=== PATIENT | female | born 1960 | race Caucasian/White ===

== ENCOUNTER 2019-09-19 12:41 | Emergency (ER) | payer BC, SELFPAY ==
[2019-09-19 12:59] VITALS: BP 172/81; PULSE 98; RESP 20; TEMP 37.8; O2SAT 98
--- NOTE | 2019-09-19 13:06 | ED.URI ---
HPI - URI/Sore Throat General Chief Complaint: Upper Respiratory Infection Stated Complaint: CLEMONS/fever Time Seen by Provider: 09/19/19 13:00 Source: patient Mode of arrival: ambulatory Limitations: no limitations History of Present Illness HPI Narrative: Chitra Velazco is a 59 yo female with a PMH of GERD who comes to urgent care with headache and upper respiratory symptoms. Patient started developed symptoms yesterday, she states she did not have a flu vaccine because she is afraid of it; when questioned about this believe she said she knows a lot of people get sick even with the flu vaccine. Related Data Home Medications Medication Instructions Recorded Confirmed anastrozole 1 mg DAILY 09/19/19 09/19/19 latanoprost 1 drp HS 09/19/19 09/19/19 omeprazole 20 mg DAILY 09/19/19 09/19/19 Allergies Allergy/AdvReac Type Severity Reaction Status Date / Time SHELLFISH Allergy Unknown Uncoded 06/30/18 10:09 Review of Systems Review of Systems: Narrative: CONSTITUTIONAL: Denies fever, chills, sweats. EYES: Denies visual changes, redness, discharge. ENT: has rhinorrhea, congestion, sore throat, no otalgia. Has headache CARDIOVASCULAR: Denies chest pain, palpitations, edema. RESPIRATORY: Denies dyspnea, wheezing, cough GASTROINTESTINAL: Denies abdominal pain, nausea, vomiting, diarrhea. GENITOURINARY: Denies dysuria, hematuria, abnormal discharge SKIN: Denies rash or itching. MUSCULOSKELETAL: Denies acute back pain, joint pain, or myalgia. NEUROLOGIC: Denies numbness, or focal weakness. PSYCHIATRIC: Denies anxiety or depression. PMFSH Family History Family History Other Heart disease Social History Social History Smoking status: Never smoker Gender identity (if verbalized by the patient): Female Comments At time of signature, I agree with nursing past medical, surgical, social and family history. There is no relevant family history pertinent to the presenting complaint. Exam Narrative: Exam Narrative: GENERAL: This is a well-nourished, well-developed patient, in moderate distress. Has intermittent fever and has headache she rates 4/ 10 HEAD: normocephalic, atraumatic. EYES: Sclera clear/white. Vision is grossly intact. EARS: External ears normal, auditory canals clear and without drainage, TMs normal without perforation. Hearing grossly intact. NOSE: External nose normal with nasal discharge, nares with redness, has rhinorrhea. THROAT: Mucous membranes moist, posterior pharynx erythema NECK: Neck supple, non-tender CARDIOVASCULAR: Regular rate and rhythm without murmurs, gallops, or rubs. RESPIRATORY: Clear to auscultation. Breath sounds equal bilaterally. No wheezes, rales, or rhonchi. GASTROINTESTINAL: Abdomen soft, non-tender, SKIN: warm, intact with no suspicious lesions or rash, good texture and turgor. NEURO: awake, alert, and oriented to person, place and time. There were no obvious focal neurologic abnormalities. Steady gait EXTREMITIES: Normal range of motion. No edema. BACK: Nontender without deformity or crepitance. . Course Course Emergency Course: Discussed pain control with ibuprofen, call in a cough medicine the MucinexMimaofjayden Vital Signs Vital signs: Vital Signs Temperature 100.0 F H 09/19/19 12:59 Pulse Rate 98 09/19/19 12:59 Respiratory Rate 09/19/19 12:59 Blood Pressure 172/81 H 09/19/19 12:59 Pulse Oximetry 98 09/19/19 12:59 Temperature 100.0 F H 09/19/19 12:59 Pulse Rate 98 09/19/19 12:59 Respiratory Rate 09/19/19 12:59 Blood Pressure 172/81 H 09/19/19 12:59 Pulse Oximetry 98 09/19/19 12:59 MDM - URI/Sore Throat Differential Diagnosis Differential diagnosis: Likely upper respiratory infection, viral infection and influenza Lab Data Labs: Influenza A Screen Positive Reference Range: Negative Influenza
== END 2019-09-19 13:21 | disposition home or self-care (01) ==
PROVIDERS: Emergency Provider Nurse Practitioner
DX: J10.1 Influenza due to other identified influenza virus with other respiratory manifestations (principal)
CPT/HCPCS: 87804; 99213; G0463

== ENCOUNTER 2021-08-16 11:35 | Emergency (ER) | payer BC, SELFPAY ==
[2021-08-16 12:00] VITALS: BP 175/98; PULSE 133; RESP 14; TEMP 36.6; O2SAT 97
[2021-08-16 14:04] VITALS: BP 156/87; PULSE 112; TEMP 37.3; O2SAT 98
--- NOTE | 2021-08-16 17:05 | PC.NURSE ---
pt. called 2x for VS. no answer
== END 2021-08-17 02:59 | disposition left against medical advice (07) ==
DX: Z53.21 Procedure and treatment not carried out due to patient leaving prior to being seen by health care provider (principal)
CPT/HCPCS: 99199